=== PATIENT | female | born 1960 | race Caucasian/White ===

== ENCOUNTER 2018-03-08 07:58 | Day surgery (SDC) | payer MEDICAID ==
[~2018-03-08 07:58] MED LIST: CEFAZOLIN 2 GM/50 ML (PMX) 50 ML IVPB; SOD CHLORIDE 0.9% 1,000 ML IV
[2018-03-08] MEDS ORDERED: MIDAZOLAM 1 MG/ML 2 ML INJ (13:35)
[2018-03-08] MEDS ORDERED: CEFAZOLIN 1 GM INJ (13:42)
[2018-03-08] MEDS ORDERED: ONDANSETRON 4 MG INJ (13:42)
[2018-03-08] MEDS ORDERED: PROPOFOL 20 ML (13:42)
[2018-03-08] MEDS ORDERED: LIDOCAINE 2% (SDV) 5 ML INJ (13:42)
[2018-03-08] MEDS ORDERED: DEXAMETHASONE 4 MG/ML 1 ML INJ (13:42)
[2018-03-08] MEDS ORDERED: FAMOTIDINE 20 MG INJ (13:46)
[2018-03-08] MEDS ORDERED: FENTAnyl 50 MCG/ML VIAL (13:46)
[2018-03-08] MEDS ORDERED: MEPERIDINE 25 MG INJ IV (14:00)
[2018-03-08] MEDS ORDERED: HYDROmorphONE 1 MG/5 ML IV SYRINGE IV ×3 (14:00)
[2018-03-08] MEDS ORDERED: FENTAnyl 50 MCG/ML VIAL IV ×3 (14:00)
[2018-03-08] MEDS ORDERED: PROCHLORPERAZINE 10 MG INJ IV (14:00)
[2018-03-08] MEDS ORDERED: ONDANSETRON 4 MG INJ IV (14:00)
[2018-03-08] MEDS ORDERED: DIPHENHYDRAMINE 50 MG INJ IV (14:00)
[2018-03-08] MEDS ORDERED: hydrALAzine 20 MG INJ IV (15:00)
[2018-03-08] MEDS ORDERED: OXYCODONE/ACETAMINOPHEN (5/325) TAB PO (15:00)
[2018-03-08] MEDS ORDERED: LABETALOL HCL 20MG INJ IV (15:00)
[2018-03-08] MEDS: HYDROCODONE/APAP (7.5/325) TAB PO (15:28)
== END 2018-03-08 16:26 | disposition home or self-care (01) ==
LOC: SDS 07:58
DX: N60.22 Fibroadenosis of left breast (principal); I10 Essential (primary) hypertension
CPT/HCPCS: 19301; 88307

== ENCOUNTER 2018-03-17 13:35 | Emergency (ER) | payer BC, MEDICAID | END 2018-03-17 15:27 | disposition home or self-care (01) | LOC: FTE 13:35 | DX: L53.9 Erythematous condition, unspecified (principal); Z48.01 Encounter for change or removal of surgical wound dressing | CPT/HCPCS: 99283 ==